=== PATIENT | male | born 1950 | race Caucasian/White ===

== ENCOUNTER 2018-12-19 13:54 | Emergency (ER) | payer MEDICARE, OTHER ==
[~2018-12-19] VITALS: Ht 182.9 cm; Wt 86.2 kg
[2018-12-19] MEDS ORDERED: NITROGLYCERIN0.4 MG SL (16:15)
[2018-12-19] MEDS ORDERED: TAMSULOSIN HCL0.4 MG PO (16:15)
[2018-12-19] MEDS ORDERED: METOPROLOL SUCC25 MG PO (17:14)
[2018-12-19] MEDS ORDERED: LIPITOR10 MG PO (17:21)
== END 2018-12-19 18:58 | disposition home or self-care (01) ==
LOC: ED 13:54
PROC: 0T2BX0Z Change Drainage Device in Bladder, External Approach (ICD-10-PCS; principal; 2018-12-19)
DX: R33.9 Retention of urine, unspecified (principal); I10 Essential (primary) hypertension; I25.2 Old myocardial infarction
CPT/HCPCS: 51702; 81001; 99283-25